=== PATIENT | female | born 1970 | race Caucasian/White ===

== ENCOUNTER 2019-08-08 12:07 | Inpatient (IN) | payer OTHER ==
[~2019-08-08] VITALS: Ht 157.4 cm; Wt 65.0 kg
[~2019-08-08 12:07] MED LIST: ADDERALL15 MG PO; ATARAX,VISTARIL50 MG PO; DICYCLOMINE HCL20 MG PO; LISINOPRIL10 M1 PO; LISINOPRIL5 MG PO; METHOCARBAMOL750 M1 PO; MOTRIN 600 MG E4 TAB PO; NATURE'S BLEND F1 MG PO; PROZAC20 MG PO; Synthroid,Lev100 MCG PO; VITAMIN B-1100 M1 PO; ZOFRAN 4 MG ED2 TAB PO
[2019-08-08 12:17] VITALS: BP 115/75
--- NOTE | 2019-08-08 14:04 | NUR ---
A RELEASE OF INFORMATION FOR THE COVID RESULTS WAS SIGNED BY THE PATIENT AND [facility] [place]. OF YET THEY HAVE NOT SENT THE INFORMATION. THE PT WAS INFORMED THAT WE ARE STILL WAITING
[2019-08-08 14:33] LABS: BASO % 0.4 % (0.0-1.0); EOS # 0.1 10*3/uL (0.0-0.4); EOS % 1.9 % (1.0-4.0); HEMATOCRIT 35.9 % (37.0-47.0); LYMPH # 1.6 10*3/uL (1.3-4.4); LYMPH % 35.1 % (27.0-41.0); MEAN CORPUSCULAR HGB 31.3 pg (27.0-31.0); MEAN CORPUSCULAR HGB CONC 33.7 g/dl (33.0-37.0); MEAN PLATELET VOLUME 10.2 fl (9.6-12.3); MONO # 0.3 10*3/uL (0.1-1.0); MONO % 5.4 % (3.0-9.0); NEUT # 2.7 10*3/uL (2.3-7.9); PLATELET COUNT AUTOMATED 197 10*3/uL (130-400); RED BLOOD COUNT 3.86 10*6/uL (4.10-5.10); RED CELL DISTRI WIDTH 12.2 % (0-14.5); WHITE BLOOD COUNT 4.7 10*3/uL (4.8-10.8)
[2019-08-08 14:49] LABS: ACETAMINOPHEN (TYLENOL) < 5.0 ug/ml (10-30); ALBUMIN 3.7 gm/dl (3.1-4.5); ALKALINE PHOSPHATASE 67 U/L (45-117); BUN 11 mg/dl (7-24); CHLORIDE 107 mmol/L (98-107); CREATININE 0.93 mg/dL (0.55-1.02); POTASSIUM 3.8 mmol/L (3.5-5.1); SGOT/AST 32 IU/L (3-35); SGPT/ALT 32 U/L (12-78); SODIUM 141 mmol/L (136-145); TOTAL PROTEIN 7.1 gm/dL (6.4-8.2); TROPONIN I < 0.015 ng/ml (<0.045)
[2019-08-08 15:22] LABS: URINE AMPHETAMINES < 1000 (1000ng/ml); URINE BARBITURATES < 200 (200ng/ml); URINE BENZODIAZEPINES < 200 (200ng/ml); URINE CANNABINOIDS (THC) > 50 (50ng/ml); URINE COCAINE < 300 (300ng/ml); URINE METHADONE < 300 (300ng/ml); URINE OPIATES < 300 (300ng/ml)
[2019-08-08 15:25] LABS: BILIRUBIN NEGATIVE (NEGATIVE); BLOOD NEGATIVE (NEGATIVE); CLARITY CLEAR (CLEAR); COLOR YELLOW (YELLOW); GLUCOSE NEGATIVE (NEGATIVE); KETONE NEGATIVE (NEGATIVE); LEUKO ESTERASE NEGATIVE (NEGATIVE); NITRITE NEGATIVE (NEGATIVE); SPECIFIC GRAVITY 1.025 (1.005-1.030); UROBILINOGEN 0.2 E.U./dl (0.2-1.0)
[2019-08-08 15:28] LABS: BACTERIA TRACE; MUCOUS 1+; RBC 0-2 rbc/hpf (0-2)
[2019-08-08 15:31] LABS: URINE PHENCYCLIDINE < 25 (25ng/ml)
--- NOTE | 2019-08-08 15:31 | NUR ---
THE PT DID SHOW THIS NURSE A PICTURE ON HER PHONE OF THE COVID RESULTS FROM [facility]. IT DID SHOW NO COVID DETECTED. I DID LET PAC. DOMÍNGUEZ KNOW
[2019-08-08 15:36] VITALS: BP 125/82
[2019-08-08 17:04] VITALS: BP 127/84
--- NOTE | 2019-08-08 17:09 | NUR ---
THE REPORT WAS FAXED TO [facility]
[2019-08-08 17:30] VITALS: BP 137/88
[2019-08-08] MEDS ORDERED: PROZAC20 MG PO (17:40)
--- NOTE | 2019-08-08 17:53 | NUR ---
PT REFUSING TEDS AT THIS TIME.
[2019-08-08] MEDS ORDERED: IRON325 M1 PO (17:54)
--- NOTE | 2019-08-08 18:16 | NUR ---
SPOKE WITH DR MANDUJANO REGARDING PT ADMISSIONS ORDERS DIFFERING IN REGARDS TO BEING TELEMETRY OR MED/SURG. STATES PATIET CAN BE MED/SURG FOR NOW HER VITALS ARE STABLE. STATES THAT THEY WILL CONTINUALLY MONITOR THE PATIENT AND IF THE NEED ARISES FOR A MONITOR, ONE WILL BE ORDERED AT A LATER TIME.
--- NOTE | 2019-08-08 18:16 | NUR ---
DR MANDUJANO NOTIFIED OF UPDATED MED REC.
--- NOTE | 2019-08-08 19:00 | NUR ---
ASSUMED CARE FOR THIS PT AT THIS TIME. NO S/S OF WITHDRAWALS NOTED. CALL LIGHT IN REACH.
[2019-08-08 20:00] VITALS: BP 153/83
[2019-08-08] MEDS ORDERED: ZESTRIL10 MG PO (21:36)
--- NOTE | 2019-08-08 21:38 | NUR ---
DR. HAMMER NOTIFIED OF PT'S MED REC UTD AND HOME MEDS NOT CONTINUED. PT DENIES TAKING ANY HOME MEDS TODAY.
[2019-08-09] VITALS: BP 148/78
--- NOTE | 2019-08-09 00:19 | NUR ---
PT RESTING QUIETLY IN BED. NO C/O WITHDRAWAL S/S AND NONE NOTED. CALL LIGHT IN REACH.
--- NOTE | 2019-08-09 07:00 | NUR ---
ARRIVED ON SHIFT, REPORT RECEIVED FROM OFFGOING NURSE, ASSUMED CARE OF PATIENT.
--- NOTE | 2019-08-09 07:30 | NUR ---
INTRODUCED SELF TO PATIENT, BED IN LOW POSITION, WHEEL LOCKS ENGAGED, SIDE RAILS UP X 2 FOR TURNING AND REPOSITIONING, CALL LIGHT WITHIN REACH, NO NEEDS VOICED AT THIS TIME. SHAQ TUTTLE UPDATED.
[2019-08-09 08:00] VITALS: BP 144/93
[2019-08-09 12:00] VITALS: BP 147/92; BP 90/62
--- NOTE | 2019-08-09 12:35 | NUR ---
PATIENT REPORT HER ANXIETY IS REALLY BAD, AND MADDI HASN'T TOUCHED IT.
[2019-08-09 16:00] VITALS: BP 118/83
[2019-08-09 20:00] VITALS: BP 131/89
--- NOTE | 2019-08-09 20:40 | NUR ---
PATIENT IS AAOX3, RESTING IN BED WITH EASY AND REGULAR RESPERS ON ROOM AIR. ASSESSMENT IS COMPLETE WITH NO S/S OF DISTRESS NOTED AT THIS TIME. PATIENT WANTS NICOTINE PATCH AND C/O BODY ACHES. BED IS LOW, LOCKED, AND CALL LIGHT IS WITHIN REACH. CONTACTED DR. GRACE EARLIER IN REGARDS TO PATIENT WANTING SHOWER. OK TO SHOWER.
--- NOTE | 2019-08-09 20:47 | NUR ---
CALLED DR. LEE IN REGARDS TO PATIENT REQUESTING ANOTHER NICOTINE PATCH. PATIENT STATED "I DIDNT KNOW YOU WERE ALLOWED TO EAT/SLEEP WITH THE PATCH ON. SO I TOOK IT OFF AND THREW IT AWAY." OK TO GIVE ANOTHER PATCH.
--- NOTE | 2019-08-09 20:54 | NUR ---
PRN MOTRIN, ROBAXIN, AND VISTARIL GIVEN FOR C/O BODY ACHES/PAINS AND ANXIETY. CALL LIGHT IS WITHIN REACH.
--- NOTE | 2019-08-09 21:54 | NUR ---
PRN MEDICATIONS EFFECTIVE PER PATIENT.
--- NOTE | 2019-08-09 22:05 | NUR ---
REQUESTING INSOMNIA MEDICATION. PRN TRAZADONE GIVEN PER ORDER. CALL LIGHT IS WITHIN REACH, WILL MONITOR EFFECT.
--- NOTE | 2019-08-09 23:05 | NUR ---
TRAZADONE EFFECTIVE. PATIENT SLEEPING. CALL LIGHT IS WITHIN REACH.
[2019-08-10] VITALS: BP 113/73
--- NOTE | 2019-08-10 05:41 | NUR ---
PATIENT AWAKENS EASILY FOR AM MEDICATIONS. TAKEN WELL. CALL LIGHT IS WITHIN REACH.
[2019-08-10 06:14] LABS: BASO % 0.2 % (0.0-1.0); EOS # 0.1 10*3/uL (0.0-0.4); EOS % 2.9 % (1.0-4.0); HEMATOCRIT 31.1 % (37.0-47.0); LYMPH # 1.4 10*3/uL (1.3-4.4); LYMPH % 28.6 % (27.0-41.0); MEAN CELL VOLUME 92.8 fl (81.0-99.0); MEAN CORPUSCULAR HGB 31.9 pg (27.0-31.0); MEAN CORPUSCULAR HGB CONC 34.4 g/dl (33.0-37.0); MEAN PLATELET VOLUME 11.2 fl (9.6-12.3); MONO # 0.4 10*3/uL (0.1-1.0); MONO % 9.2 % (3.0-9.0); NEUT # 2.8 10*3/uL (2.3-7.9); NEUT % 58.9 % (47.0-73.0); PLATELET COUNT AUTOMATED 142 10*3/uL (130-400); RED BLOOD COUNT 3.35 10*6/uL (4.10-5.10); RED CELL DISTRI WIDTH 12.1 % (0-14.5); WHITE BLOOD COUNT 4.8 10*3/uL (4.8-10.8)
[2019-08-10 06:31] LABS: ALKALINE PHOSPHATASE 74 U/L (45-117); BUN 14 mg/dl (7-24); CHLORIDE 106 mmol/L (98-107); CREATININE 0.81 mg/dL (0.55-1.02); POTASSIUM 4.5 mmol/L (3.5-5.1); SGOT/AST 24 IU/L (3-35); SGPT/ALT 20 U/L (12-78); SODIUM 139 mmol/L (136-145); TOTAL PROTEIN 5.9 gm/dL (6.4-8.2)
--- NOTE | 2019-08-10 07:00 | NUR ---
ARRIVED ON SHIFT, RECEIVED REPORT FROM OFFGOING NURSE, ASSUMED CARE OF PATIENT.
--- NOTE | 2019-08-10 07:20 | NUR ---
INTRODUCED SELF TO PATIENT, BED IN LOW POSITION, WHEEL LOCKS ENGAGED, SR UP X 2 FOR TURNING AND REPOSITIONING, CALL LIGHT WITHIN REACH, NO NEEDS VOICED AT THIS TIME, WHITE BOARD UPDATED.
--- NOTE | 2019-08-10 07:40 | NUR ---
Shift chart check completed.
[2019-08-10 08:00] VITALS: BP 100/65; BP 102/58
--- NOTE | 2019-08-10 09:50 | NUR ---
PATIENT C/O MUSCLE ACHES AND ANXIETY MEDICATED WITH IBUPROFEN AND ATIVAN 1MG ORDERED.
--- NOTE | 2019-08-10 10:56 | NUR ---
LORAZEPAM EFFECTIVE EVIDENCED BY PATIENT RESTING QUIETLY WITH EYES CLOSED, RESPIRATIONS EASY AND NON LABORED, NO DISTRESS NOTED.
[2019-08-10 12:00] VITALS: BP 117/85
--- NOTE | 2019-08-10 12:30 | NUR ---
CALL PLACED TO DR. LEE ADVISED PATIENT HAD RECEIVED 1MG OF PRN LORAZEPAM 2.5 HOURS AGO AND IS RESTING WITH EYES CLOSED, WITH N O DISTRESS NOTED. ADVISED SHE HAS AVAILABILITY OF PRN ATIVAN IF NEEDED, HE ADVISED TO HOLD NOW DOES OF 0.5MG
[2019-08-10 16:00] VITALS: BP 118/81
--- NOTE | 2019-08-10 16:05 | NUR ---
MEDICATED WITH PRN ATIVAN PER PATIENT REQUEST. PATIENT VERY ANXIOUS. PATIENTS NURSE TO ASSESS EFFECTIVENESS. CALL LIGHT IS WITHIN REACH. SEE EMAR.
--- NOTE | 2019-08-10 17:05 | NUR ---
PATIENT REPORTS DECREASE IN ANXIETY, SINCE RECEIVING LORAZEPAM X 1 HOUR AGO.
--- NOTE | 2019-08-10 19:00 | NUR ---
WHILE WALKING ONTO FLOOR PATIENT HAD BELONGINGS, ASKED PATIENT WHERE SHE WAS GOING SHE STATED "I'M LEAVING. SOMETHING CAME UP AND I HAVE TO GO." INFORMED PATIENT THAT IV NEEDS TAKEN OUT OR WE HAVE TO CALL THE POLICE. ANOTHER RN IS TAKING OUT IV. CALL PLACED TO SPOOLING SUPERVISOR BY SPRING [employer]ODUCTION SUPERVISOR, AND DR. THORNE AWARE.
== END 2019-08-10 19:53 | disposition left against medical advice (07) | DRG 770 ==
LOC: ED 12:07 → EDHOLD 16:11 → 5E 16:11
PROVIDERS: Physician Assistant; ADMIT Internal Medicine
DX: F10.232 Alcohol dependence with withdrawal with perceptual disturbance (principal); D72.819 Decreased white blood cell count, unspecified; R73.9 Hyperglycemia, unspecified; I10 Essential (primary) hypertension; E83.51 Hypocalcemia; E83.41 Hypermagnesemia; F41.1 Generalized anxiety disorder; F90.9 Attention-deficit hyperactivity disorder, unspecified type; E03.9 Hypothyroidism, unspecified; Z98.51 Tubal ligation status; Y90.7 Blood alcohol level of 200-239 mg/100 ml